=== PATIENT | male | born 1995 | race Caucasian/White ===

== ENCOUNTER 2020-09-12 17:13 | Emergency (ER) | payer MEDICAID, OTHER ==
[~2020-09-12] VITALS: Ht 182.9 cm; Wt 68.0 kg
[2020-09-12 17:22] VITALS: BP 145/72
--- NOTE | 2020-09-12 17:25 | NUR ---
Patient ambulated to bed 11. RN evaluating the patient at bedside.
--- NOTE | 2020-09-12 17:28 | NUR ---
Note undone in EDM - 09/12/20 at 1737 by [facility] 24YO M C/O NEAR-SYNCOPE FEW MINS PRIOR TO ARRIVAL. PER PATIENT, HE EXPERIENCED 9/10 SHARP PAIN ON LLQ AND VERBALIZED THAT "SUDDENLY EVERYTHING TURNED WHITE AND MY EARS WERE RINGING." PT REPORTS NAUSEA, DENIES VOMITING/DIARRHEA. DENIES LOC. DENIES HX OF SEIZURES. IN ED, VSS. AOX4. ABDOMEN SOFT, NONTENDER. ABLE TO AMBULATE STEADILY. ERMD MADE AWARE OF PT STATUS. PMH: DENIES MEDS: NONE NKA
--- NOTE | 2020-09-12 17:36 | NUR ---
24YO M C/O 9/10 LLQ PAIN FEW MINS PRIOR TO ARRIVAL. PT ALSO VERBALIZED THAT "SUDDENLY EVERYTHING TURNED WHITE AND MY EARS WERE RINGING." PT REPORTS NAUSEA, DENIES VOMITING/DIARRHEA. DENIES LOC. DENIES HX OF SEIZURES. IN ED, VSS. AOX4. ABDOMEN SOFT, NONTENDER. ABLE TO AMBULATE STEADILY. ERMD MADE AWARE OF PT STATUS. PMH: DENIES MEDS: NONE NKA
[2020-09-12 18:02] LABS: APPEARANCE,URINE CLEAR (CLEAR); BILIRUBIN,URINE NEGATIVE (NEGATIVE); BLOOD, URINE NEGATIVE (NEGATIVE); COLOR,URINE YELLOW (YELLOW); LEUKOCYTE ESTERASE ,URINE NEGATIVE (NEGATIVE); NITRITE, URINE NEGATIVE (NEGATIVE); PH,URINE 7.5 (5.0-9.0); UGLUCOSE NEGATIVE (NEGATIVE)
[2020-09-12 18:02] LABS: BASOPHILS % (AUTO) 0.2 % (0.0-2.0); EOSINOPHILS % (AUTO) 0.3 % (0.0-4.0); HEMATOCRIT 43.9 % (36-52); HEMOGLOBIN 14.7 g/dL (12.0-18.0); LYMPHOCYTES # (AUTO) 0.7 K/uL (2.0-11.5); LYMPHOCYTES % (AUTO) 9.1 % (20.5-51.1); MEAN CORPUSCULAR HEMOGLOBIN 29 pg (27-31); MEAN CORPUSCULAR HGB CONC 34 g/dL (33-37); MEAN CORPUSCULAR VOLUME 85.7 fL (80-94); MONOCYTES # (AUTO) 0.5 K/uL (0.8-1.0); MONOCYTES % (AUTO) 6.6 % (1.7-9.3); NEUTROPHILS # (AUTO) 6.7 K/uL (1.8-7.7); NEUTROPHILS % (AUTO) 83.8 % (42.2-75.2); PLATELET COUNT (AUTO) 179 K/uL (140-450); RED BLOOD CELL COUNT(AUTO) 5.13 MIL/uL (4.20-6.10); RED CELL DISTRIBUTION WIDTH 13.2 % (11.6-13.7); WHITE BLOOD COUNT (AUTO) 7.9 K/uL (4.8-10.8)
[2020-09-12 18:12] LABS: ALBUMIN 4.3 g/dL (3.4-5.0); CARBON DIOXIDE 29.1 mmol/L (21-32); CREATININE 0.8 mg/dL (0.6-1.3); POTASSIUM 4.1 mmol/L (3.5-5.1); TOTAL BILIRUBIN 0.3 mg/dL (0.0-1.0)
[2020-09-12 18:44] VITALS: BP 145/72
--- NOTE | 2020-09-12 18:45 | NUR ---
Patient discharged with v/s stable. Written and verbal after care instructions given and explained. Patient verbalized understanding. Ambulatory with steady gait. All questions addressed prior to discharge. Advised to follow up with PMD.
== END 2020-09-12 18:40 | disposition home or self-care (01) ==
LOC: MED 17:13
DX: R10.32 Left lower quadrant pain (principal); R55 Syncope and collapse
CPT/HCPCS: 36415; 80053; 81003; 83690; 85025; 93005; 99284